=== PATIENT | male | born 1955 | race Caucasian/White ===

== ENCOUNTER → 2019-11-23 13:12 | Outpatient (BNVA) | payer BC, SELFPAY | PROVIDERS: PCP Neurological Surgery; Referring Provider Psychiatry & Neurology Neurology; Visit Provider Specialist | DX: M25.511 Pain in right shoulder (principal); M75.81 Other shoulder lesions, right shoulder; M19.011 Primary osteoarthritis, right shoulder | CPT/HCPCS: 73030 ==

== ENCOUNTER → 2020-03-19 08:21 | Outpatient (BNVA) | payer BC, SELFPAY | PROVIDERS: Family Provider Nurse Practitioner Family; PCP Nurse Practitioner Family; Visit Provider Nurse Practitioner Family | DX: Z13.1 Encounter for screening for diabetes mellitus (principal); E78.5 Hyperlipidemia, unspecified; N40.0 Benign prostatic hyperplasia without lower urinary tract symptoms; Z12.5 Encounter for screening for malignant neoplasm of prostate; E78.2 Mixed hyperlipidemia; N40.1 Benign prostatic hyperplasia with lower urinary tract symptoms; R35.1 Nocturia | CPT/HCPCS: 80053; 80061; 84153 ==

== ENCOUNTER → 2021-04-24 11:41 | Outpatient (BNVA) | payer BC, SELFPAY | PROVIDERS: Family Provider Nurse Practitioner Family; PCP Nurse Practitioner Family; Visit Provider Nurse Practitioner Family | DX: R22.1 Localized swelling, mass and lump, neck (principal) | CPT/HCPCS: 84443; 85025 ==

== ENCOUNTER → 2021-04-26 08:04 | Outpatient (BNVA) | payer BC, SELFPAY | PROVIDERS: Family Provider Nurse Practitioner Family; PCP Nurse Practitioner Family; Visit Provider Nurse Practitioner Family | DX: R22.1 Localized swelling, mass and lump, neck (principal); E78.5 Hyperlipidemia, unspecified | CPT/HCPCS: 84443 ==

== ENCOUNTER → 2021-06-24 16:48 | Outpatient (BNVA) | payer BC, SELFPAY | PROVIDERS: Family Provider Nurse Practitioner Family; PCP Nurse Practitioner Family; Visit Provider Nurse Practitioner Family | DX: E03.9 Hypothyroidism, unspecified (principal) | CPT/HCPCS: 84443 ==

== ENCOUNTER → 2021-10-09 15:53 | Outpatient (BNVA) | payer BC, SELFPAY | PROVIDERS: Family Provider Nurse Practitioner Family; PCP Nurse Practitioner Family; Visit Provider Nurse Practitioner Family | DX: E03.9 Hypothyroidism, unspecified (principal); Z79.899 Other long term (current) drug therapy | CPT/HCPCS: 80053; 84443 ==

== ENCOUNTER → 2021-12-06 10:31 | Outpatient (BNVA) | payer BC, SELFPAY | PROVIDERS: Family Provider Nurse Practitioner Family; PCP Nurse Practitioner Family; Visit Provider Nurse Practitioner Family | DX: E03.9 Hypothyroidism, unspecified (principal); E07.9 Disorder of thyroid, unspecified | CPT/HCPCS: 80061; 84443 ==

== ENCOUNTER → 2022-02-10 11:36 | Outpatient (BNVA) | payer BC, SELFPAY | PROVIDERS: Family Provider Nurse Practitioner Family; PCP Nurse Practitioner Family; Visit Provider Nurse Practitioner Family | DX: E03.9 Hypothyroidism, unspecified (principal) | CPT/HCPCS: 84443 ==

== ENCOUNTER → 2022-04-10 10:34 | Outpatient (BNVA) | payer BC, SELFPAY | PROVIDERS: Family Provider Nurse Practitioner Family; PCP Nurse Practitioner Family; Visit Provider Nurse Practitioner Family | DX: E03.9 Hypothyroidism, unspecified (principal) | CPT/HCPCS: 84443 ==

== ENCOUNTER → 2022-06-13 09:25 | Outpatient (BNVA) | payer BC, SELFPAY | PROVIDERS: Family Provider Nurse Practitioner Family; PCP Nurse Practitioner Family; Visit Provider Nurse Practitioner Family | DX: E03.9 Hypothyroidism, unspecified (principal) | CPT/HCPCS: 84443 ==

== ENCOUNTER → 2022-09-15 10:31 | Outpatient (BNVA) | payer BC, SELFPAY | PROVIDERS: Family Provider Nurse Practitioner Family; PCP Nurse Practitioner Family; Visit Provider Nurse Practitioner Family | DX: E03.9 Hypothyroidism, unspecified (principal); E78.2 Mixed hyperlipidemia | CPT/HCPCS: 80053; 80061; 84443 ==

== ENCOUNTER 2022-12-04 11:29 | Outpatient (CLI) | payer BC, SELFPAY ==
--- NOTE | 2022-12-04 11:38 | XR_ITS ---
WS: [id number] Lumbar spine, 3 views, 12/04/2022 Clinical Data: M54.50 - Low back pain, unspecified Comparison: None. Findings: No compression fractures or subluxation is seen. No disc space narrowing is seen. The transverse proc esses and SI joints are normal. Minimal osteoarthritic spurring is noted L3-L5. There is calcification of the wall of the abdominal a cira but no aneurysm. Impression: Mild osteoarthritis of vertebral bodies L3-L5.
--- NOTE | 2022-12-04 11:38 | XR_ITS ---
WS: [email or web address] Right hip, AP and frog-leg views, 12/04/2022 Clinical Data: M25.551 - Pain in right hip Comparison: None. Findings: No fractures or dislocations are seen. The right hip shows no erosion, sclerosis, narrowing or fragme ntation of the right femoral head.. The soft tissues are not remarkable. The adjacent pelvis is ricco l. Impression: Negative right hip. Tonnis classification: grade 0: normal radiographs
== END 2022-12-04 11:30 | disposition home or self-care (01) ==
PROVIDERS: PCP Nurse Practitioner Family; Visit Provider Nurse Practitioner Family
DX: M25.551 Pain in right hip (principal); M47.816 Spondylosis without myelopathy or radiculopathy, lumbar region
CPT/HCPCS: 72100; 73502

== ENCOUNTER 2022-12-23 16:18 | Outpatient (CLI) | payer BC, SELFPAY ==
--- NOTE | 2022-12-23 16:45 | MR_ITS ---
WS: [id number] MRI LUMBAR SPINE NONCONTRAST HISTORY: M54.10 - Radiculopathy, site unspecified COMPARISON: None available. TECHNIQUE: Sagittal and axial multisequence imaging is submitted. Normal lumbar alignment with no compression fractures or marrow edema. Mild disc space narrowing and desiccation. No marrow edema or fracture. Conus terminates normally at L1-2 disc level. T11-12: Mild annular disc bulge encroaching upon the ventral thecal sac. L1-L2: Mild facet arthritis. No stenosis. L2-L3: Mild annular disc bulging, mild ligamentum flavum and facet arthritis. Mild bilateral foramina l stenosis. L3-L4: Mild annular disc bulging with marked ligamentum flavum and facet arthritis encroaching upon t he thecal sac. Mild osteophytic ridging. Moderate central, bilateral subarticular recess and mild for aminal stenosis. Disc encroachment upon the subarticular recesses and the traversing L4 nerve roots. L4-L5: Diffuse annular disc bulging with moderate ligamentum flavum and facet arthritis. Proximal RIG HT foraminal disc protrusion contacts the RIGHT L4 and L5 nerve roots. Additional mild to moderate na rrowing of the LEFT foramen due to the disc bulging. Mild central and bilateral subarticular recess s tenosis. L5-S1: Mild annular disc bulging with mild ligamentum flavum and facet arthritis. IMPRESSION: 1. L4-5: Moderate size RIGHT foraminal disc protrusion with significant contact on the RIGHT L4 and L 5 nerve roots. 2. L4-5: Mild central with mild bilateral subarticular recess stenosis. Mild to moderate LEFT foramin al stenosis. 3. L3-4: Moderate central, bilateral subarticular recess and mild foraminal stenosis. Most significan t disc encroachment upon the traversing L4 nerve roots. There is marked ligamentum flavum and facet a rthritis at L3-4. 4. L2-3: Mild bilateral foraminal stenosis.
== END 2022-12-23 16:19 | disposition home or self-care (01) ==
LOC: RAD 16:30
PROVIDERS: PCP Nurse Practitioner Family; Visit Provider Nurse Practitioner Family
DX: M47.26 Other spondylosis with radiculopathy, lumbar region (principal); M48.061 Spinal stenosis, lumbar region without neurogenic claudication; M51.26 Other intervertebral disc displacement, lumbar region; E78.2 Mixed hyperlipidemia
CPT/HCPCS: 72148; 80061

== ENCOUNTER → 2023-04-06 16:30 | Outpatient (BNVA) | payer BC, SELFPAY | PROVIDERS: PCP Nurse Practitioner Family; Visit Provider Nurse Practitioner Family | DX: E03.9 Hypothyroidism, unspecified (principal); E78.2 Mixed hyperlipidemia; I10 Essential (primary) hypertension | CPT/HCPCS: 80053; 80061; 84443 ==

== ENCOUNTER → 2024-07-13 10:57 | Outpatient (BNVA) | payer BC, SELFPAY | PROVIDERS: PCP Nurse Practitioner Family; Visit Provider Nurse Practitioner Family | DX: E03.9 Hypothyroidism, unspecified (principal); E78.2 Mixed hyperlipidemia | CPT/HCPCS: 80053; 80061; 84439; 84443 ==

== ENCOUNTER 2024-07-20 15:10 | Outpatient (CLI) | payer BC, SELFPAY ==
--- NOTE | 2024-07-20 15:30 | USR_ITS ---
PROCEDURE INFORMATION: Exam: US Soft Tissue Head and Neck, Thyroid Exam date and time: 07/20/2024 3:36 PM Age: 69 years old Clinical indication: Mass, lump, or swelling in neck; Bilateral; Location not specified; Additional info: R22.1 - localized swelling, mass and lump, neck TECHNIQUE: Imaging protocol: Real-time ultrasound scan of the neck with image documentation. Exam focused on the thyroid. COMPARISON: No relevant prior studies available. FINDINGS: Right thyroid lobe: Right lobe: 5.9 x 3 x 2.6 cm. Severely heterogeneous. Left thyroid lobe: Left lobe: 5.2 x 3.5 x 2.1 cm. Heterogeneous. Isthmus: No nodules. Lymph nodes: Suspected lymph node of approximately 1.4 cm in length in the left submandibular region. Intact cortex. US/US thyroid [id number] IMPRESSION: Heterogeneous thyroid glands bilaterally. Findings are suspicious for thyroiditis. Correlate.
== END 2024-07-20 15:11 | disposition home or self-care (01) ==
LOC: RAD 15:11
PROVIDERS: PCP Nurse Practitioner Family; Visit Provider Nurse Practitioner Family
DX: R93.89 Abnormal findings on diagnostic imaging of other specified body structures (principal)
CPT/HCPCS: 76536

== ENCOUNTER → 2024-08-31 16:27 | Outpatient (BNVA) | payer BC, SELFPAY | PROVIDERS: PCP Nurse Practitioner Family; Visit Provider Nurse Practitioner Family | DX: E03.9 Hypothyroidism, unspecified (principal) | CPT/HCPCS: 84443 ==